=== PATIENT | male | born 1995 | race Caucasian/White ===

== ENCOUNTER 2016-09-18 23:11 | Emergency (ER) | payer OTHER ==
--- NOTE | 2016-09-18 23:49 | PDOC ---
History of Present Illness - General History Source: Patient Exam Limitations: No Limitations - History of Present Illness Initial Comments: 09/18/16 23:58 The patient is a 21 year old male with no significant past medical history who presents to the ED with complaints of rash since earlier today. Patient reports he was outside, in contact with leafs, hanging out with friends when he had a sudden onset of bilateral upper extremity rash. Patient describes the rash as little red spots and is very itchy. Denies rash throughout back, chest, and abdomen. Denies headache. Denies nausea or vomiting. Denies any other symptoms. <Geetha Gonzalez - Last Filed: 09/18/16 23:58> <John Solano - Last Filed: 09/19/16 00:53> - General Chief Complaint: Rash Stated Complaint: RASH Time Seen by Provider: 09/18/16 23:48 Past History <Geetha Gonzalez - Last Filed: 09/18/16 23:58> - Past Medical History Psychiatric Problems: Yes (ANXIETY, DEPRESSION ADHD) - Immunization History Td Vaccination: Yes Immunization Up to Date: Yes - Psycho/Social/Smoking Cessation Hx Anxiety: Yes Suicidal Ideation: No Smoking Status: No Smoking History: Never smoked Years of Tobacco Use: 0 Have you smoked in the past 12 months: No Number of Cigarettes Smoked Daily: 0 Cigars Per Day: 0 Hx Alcohol Use: No Drug/Substance Use Hx: No Substance Use Type: None <John Solano - Last Filed: 09/19/16 00:53> - Past Medical History Allergies/Adverse Reactions: Allergies Allergy/AdvReac Type Severity Reaction Status Date / Time Penicillins Allergy Verified 09/18/16 23:46 Home Medications: Ambulatory Orders Aripiprazole [Abilify -] 30 mg PO DAILY 09/18/16 Citalopram Hydrobromide [Celexa -] 20 mg PO DAILY 09/18/16 Dextroamphetamine/Amphetamine [Adderall Xr 25 mg Capsule] 25 mg PO DAILY Hydrocortisone 2.5% Topical Cr [Anusol-Hc -] 1 applic RC BID #1 tube 09/19/16 Review of Systems - Review of Systems Able to Perform ROS?: Yes Comments:: 09/18/16 23:58 GENERAL/CONSTITUTIONAL: No fever or chills. No weakness. HEAD, EYES, EARS, NOSE AND THROAT: No change in vision. No ear pain or discharge. No sore throat. CARDIOVASCULAR: No chest pain or shortness of breath. RESPIRATORY: No cough, wheezing, or hemoptysis. GASTROINTESTINAL: No nausea, vomiting, diarrhea or constipation. GENITOURINARY: No dysuria, frequency, or change in urination. MUSCULOSKELETAL: No joint or muscle swelling or pain. No neck or back pain. SKIN: + rash NEUROLOGIC: No headache, vertigo, loss of consciousness, or change in strength/ sensation. ENDOCRINE: No increased thirst. No abnormal weight change. HEMATOLOGIC/LYMPHATIC: No anemia, easy bleeding, or history of blood clots. ALLERGIC/IMMUNOLOGIC: No hives or skin allergy. All Other Systems: Reviewed and Negative <Geetha Gonzalez - Last Filed: 09/18/16 23:58> *Physical Exam - Vital Signs Last Vital Signs Temp Pulse Resp BP Pulse Ox 98 F 78 18 100/64 98 09/18/16 23:44 09/18/16 23:44 09/18/16 23:44 09/18/16 23:44 09/18/16 23:44 - Physical Exam Comments: 09/18/16 23:59 GENERAL: Awake, alert, and fully oriented, in no acute distress HEAD: No signs of trauma EYES: PERRLA, EOMI, sclera anicteric, conjunctiva clear ENT: Auricles normal inspection, hearing grossly normal, nares patent, oropharynx clear without exudates. Moist mucosa NECK: Normal ROM, supple, no lymphadenopathy, JVD, or masses LUNGS: Breath sounds equal, clear to auscultation bilaterally. No wheezes, and no crackles HEART: Regular rate and rhythm, normal S1 and S2, no murmurs, rubs or gallops ABDOMEN: Soft, nontender, normoactive bowel sounds. No guarding, no rebound. No masses EXTREMITIES: Normal range of motion, no edema. No clubbing or cyanosis. No cords, erythema, or tenderness NEUROLOGICAL: Normal speech SKIN:+ Contact dermatitis on the right forearm, might be Rhus dermatitis. Warm, Dry, normal turgor. <Geetha Gonzalez - Last Filed: 09/18/16 23:58> - Vital Signs Last Vital Signs Temp Pulse Resp BP Pulse Ox 98 F 78 18 100/64 98 09/18/16 23:44 09/18/16 23:44 09/18/16 23:44 09/18/16 23:44 09/18/16 23:44 <John Solano - Last Filed: 09/19/16 00:53> *DC/Admit/Observation/Transfer - Attestations Scribe Attestion: 09/18/16 23:59 Documentation prepared by Geetha Gonzalez, acting as medical accounts receivable specialist for John Solano MD <Geetha Gonzalez - Last Filed: 09/18/16 23:58> - Discharge Dispostion Admit: No - Attestations Physician Attestion: 09/18/16 23:49 I, Dr. John Solano, attest that this document has been prepared under my direction and personally reviewed by me in its entirety. I further attest, that it accurately reflects all work, treatment, procedures and medical decision -making performed by me. <John Solano - Last Filed: 09/19/16 00:53> Diagnosis at time of Disposition: Contact dermatitis Qualifiers: Contact dermatitis type: allergic Contact dermatitis trigger: unspecified trigger Qualified Code(s): L23.9 - Allergic contact dermatitis, unspecified cause - Discharge Dispostion Disposition: HOME Condition at time of disposition: Unchanged/Unknown - Prescriptions Prescriptions: Hydrocortisone 2.5% Topical Cr [Anusol-Hc -] 1 applic RC BID #1 tube - Referrals Referrals: Gerson Luciano MD [Primary Care Provider] - - Patient Instructions Printed Discharge Instructions: DI for Contact Dermatitis, Contact Dermatitis, Poison [place], Poison [place], Poison [place] Additional Instructions: Karl- Sorry this happened to you tonight. I was able to get a little bit of cream from our pharmacy but you still need to get the prescription. Cold will make it feel better, Heat will make it worse.... Return to us if problems. Follow up with your regular doctor this coming week. Best- Dr. John Solano
[2016-09-18 23:52] VITALS: BP 100/64; PULSE 78; TEMP 98; BMI 35.2
[2016-09-19] MEDS ORDERED: TRIAMCINOLONE ACET 40MG/1ML VIAL IM ONE
[2016-09-19] MEDS ORDERED: TRIAMCINOLONE ACET 0.1% 60 ML LOTION TP SCH (06:00)
== END 2016-09-19 01:01 | disposition home or self-care (01) ==
LOC: JER 23:11
PROC: 3E0233Z Introduction of Anti-inflammatory into Muscle, Percutaneous Approach (ICD-10-PCS; principal; 2016-09-18)
DX: L23.9 Allergic contact dermatitis, unspecified cause (principal); F41.8 Other specified anxiety disorders; F90.9 Attention-deficit hyperactivity disorder, unspecified type
CPT/HCPCS: 96372; 99281-25